=== PATIENT | male | born 1965 ===

== ENCOUNTER 2016-10-14 11:57 | Day surgery (SDC) | payer MEDICAID ==
[2016-10-07 15:08] VITALS: BMI 29.4
[2016-10-14] MEDS ORDERED: Propofol 10 mg/ml Inj (20 ML) ONE (13:10)
[2016-10-14] MEDS ORDERED: Sodium Chloride 0.9% 1,000 ML IV SCH (13:45)
[2016-10-14 14:39] VITALS: BP 116/75; PULSE 66; RESP 16; TEMP 98.1; O2SAT 100
== END 2016-10-14 14:47 | disposition home or self-care (01) ==
LOC: ENDO 11:57
PROVIDERS: ATTEND Internal Medicine
DX: Z12.11 Encounter for screening for malignant neoplasm of colon (principal); D12.7 Benign neoplasm of rectosigmoid junction; D12.3 Benign neoplasm of transverse colon; K63.5 Polyp of colon; K57.30 Diverticulosis of large intestine without perforation or abscess without bleeding; K64.8 Other hemorrhoids; K74.60 Unspecified cirrhosis of liver
CPT/HCPCS: 45380; 88305; J2704; J7040 ×2

== ENCOUNTER 2017-05-08 19:45 | Emergency (ER) | payer OTHER, MEDICAID ==
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
[2017-05-08 20:28] VITALS: RESP 18; TEMP 97.8; BMI 27.3
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
[2017-05-09 00:02] VITALS: BP 131/73; PULSE 72; O2SAT 98
== END 2017-05-08 23:20 | disposition home or self-care (01) ==
LOC: ED 19:45
DX: M54.2 Cervicalgia (principal); V43.52XA Car driver injured in collision with other type car in traffic accident, initial encounter; Y92.410 Unspecified street and highway as the place of occurrence of the external cause